=== PATIENT | female | born 1995 | race Two or more races ===

== ENCOUNTER 2018-08-31 05:18 | Inpatient (IN) | payer OTHER ==
[2018-08-31 06:09] LABS: ADD MAN DIFF? NO
[2018-08-31 06:13] LABS: BASOPHILS % 0.9 % (0.0-2.0); EOSINOPHILS # 0.2 10^3/ul (0.0-0.5); EOSINOPHILS % 4.2 % (0.0-7.0); HEMATOCRIT 40.3 % (37.0-47.0); HEMOGLOBIN 13.4 g/dl (12.0-16.0); LYMPHOCYTES # 2.1 10^3/ul (0.8-2.9); LYMPHOCYTES % 47.7 % (15.0-51.0); MEAN CORPUSCULAR HEMOGLOBIN 29.7 pg (29.0-33.0); MEAN CORPUSCULAR HGB CONC 33.3 g/dl (32.0-37.0); MEAN CORPUSCULAR VOLUME 89.4 fl (82.0-101.0); MEAN PLATELET VOLUME 10.9 fl (7.4-10.4); MONOCYTE # 0.5 10^3/ul (0.3-0.9); MONOCYTES % 11.2 % (0.0-11.0); NEUTROPHIL # 1.6 10^3/ul (1.6-7.5); PLATELET COUNT 191 10^3/UL (140-415); RED BLOOD COUNT 4.51 10^6/ul (4.20-5.40); RED CELL DISTRIBUTION WIDTH 12.6 % (11.5-14.5)
[2018-08-31 06:13] LABS: WHITE BLOOD COUNT 4.3 10^3/ul (4.8-10.8)
[2018-08-31] MEDS: LACTATED RINGER'S 1,000 ML IV ×3 (06:27→19:58)
[2018-08-31 06:28] LABS: HOLD TRANSMISSIONS 1
[2018-08-31 06:31] LABS: INR 0.83; PROTIME 11.5 Sec (11.9-14.9); PT RATIO 0.9
[2018-08-31 06:32] LABS: PARTIAL THROMBOPLASTIN TIME 26.2 Sec (23.0-35.0)
[2018-08-31 06:38] LABS: ALANINE AMINOTRANSFERASE 29 IU/L (13-69); ALBUMIN/GLOBULIN RATIO 1.25; ALKALINE PHOSPHATASE 75 IU/L (42-121); ANION GAP 11 (5-13); ASPARTATE AMINO TRANSFERASE 32 IU/L (15-46); BILIRUBIN,INDIRECT 0.5 mg/dl (0-1.1); BILIRUBIN,TOTAL 0.5 mg/dl (0.2-1.3); BLOOD UREA NITROGEN 16 mg/dl (7-20); CARBON DIOXIDE 21 mmol/L (21-31); CREATININE 0.92 mg/dl (0.44-1.00); Estimated GFR > 60 mL/min (>60); GLUCOSE 88 mg/dl (70-220); POTASSIUM 4.2 mmol/L (3.5-5.1); TOTAL PROTEIN 7.2 g/dl (6.1-8.1)
[2018-08-31 06:41] LABS: CHLORIDE 113 mmol/L (97-110); SODIUM 145 mmol/L (135-144)
[2018-08-31] MEDS ORDERED: MEPERIDINE 25 MG INJ IV (07:00)
[2018-08-31] MEDS ORDERED: OXYCODONE/ACETAMINOPHEN (5/325) TAB PO ×2 (07:00)
[2018-08-31] MEDS ORDERED: ONDANSETRON 4 MG INJ IV ×2 (07:00→08:00)
[2018-08-31] MEDS ORDERED: HYDROmorphONE 1 MG/5 ML IV SYRINGE IV ×2 (07:00)
[2018-08-31] MEDS ORDERED: ALBUTEROL 0.083% (NEB) 2.5 MG/3 ML AMP HHN (07:00)
[2018-08-31] MEDS ORDERED: LIDOCAINE 4% (MPF) 5 ML INJ (07:05)
[2018-08-31] MEDS ORDERED: LIDOCAINE 2% (SDV) 5 ML INJ (07:09)
[2018-08-31] MEDS ORDERED: ROCURONIUM 50 MG INJ (07:09)
[2018-08-31] MEDS ORDERED: MIDAZOLAM 1 MG/ML 2 ML INJ (07:09)
[2018-08-31] MEDS ORDERED: HYDROmorphONE 2 MG/ML SYG (07:09)
[2018-08-31] MEDS ORDERED: PROPOFOL 20 ML (07:09)
[2018-08-31] MEDS ORDERED: CEFAZOLIN 1 GM INJ (07:12)
[2018-08-31] MEDS ORDERED: DEXAMETHASONE 4 MG/ML 5 ML INJ (07:51)
[2018-08-31] MEDS ORDERED: METOCLOPRAMIDE 10 MG INJ (07:51)
[2018-08-31] MEDS ORDERED: ONDANSETRON 4 MG INJ (07:51)
[2018-08-31] MEDS ORDERED: FAMOTIDINE 20 MG INJ (07:52)
[2018-08-31] MEDS ORDERED: HYDROCODONE/APAP (5/325) TAB PO (08:00)
[2018-08-31] MEDS ORDERED: GLYCOPYRROLATE 0.4 MG INJ (08:27)
[2018-08-31] MEDS ORDERED: NEOSTIGMINE 3 MG/3 ML SYRINGE (08:27)
[2018-08-31] MEDS: HYDROmorphONE 1 MG/5 ML IV SYRINGE IV (09:17)
[2018-08-31] MEDS: HYDROCODONE/APAP (5/325) TAB PO ×2 (11:43→17:44)
[2018-08-31] MEDS: morphine 2 MG INJ IV ×3 (13:09→19:53)
[2018-08-31] MEDS: KETOROLAC 30 MG INJ IV ×2 (16:17→22:16)
[2018-08-31] MEDS: MINERAL OIL 30ML CUP PO (21:28)
[2018-08-31] MEDS: MAGNESIUM HYDROXIDE 30ML CUP PO (21:28)
[2018-09-01] MEDS: KETOROLAC 30 MG INJ IV (04:08)
[2018-09-01] MEDS: LACTATED RINGER'S 1,000 ML IV (04:08)
[2018-09-01 05:28] LABS: ADD MAN DIFF? NO
[2018-09-01 05:31] LABS: WHITE BLOOD COUNT 7.2 10^3/ul (4.8-10.8)
[2018-09-01 05:31] LABS: BASOPHILS % 0.3 % (0.0-2.0); EOSINOPHILS # 0.1 10^3/ul (0.0-0.5); EOSINOPHILS % 0.8 % (0.0-7.0); HEMOGLOBIN 11.1 g/dl (12.0-16.0); LYMPHOCYTES # 1.6 10^3/ul (0.8-2.9); LYMPHOCYTES % 22.8 % (15.0-51.0); MEAN CORPUSCULAR HEMOGLOBIN 29.7 pg (29.0-33.0); MEAN CORPUSCULAR HGB CONC 33.6 g/dl (32.0-37.0); MEAN CORPUSCULAR VOLUME 88.2 fl (82.0-101.0); MEAN PLATELET VOLUME 10.6 fl (7.4-10.4); MONOCYTE # 0.8 10^3/ul (0.3-0.9); MONOCYTES % 10.6 % (0.0-11.0); NEUTROPHIL # 4.7 10^3/ul (1.6-7.5); NEUTROPHILS % 65.2 % (39.0-77.0); PLATELET COUNT 148 10^3/UL (140-415); RED BLOOD COUNT 3.74 10^6/ul (4.20-5.40); RED CELL DISTRIBUTION WIDTH 12.5 % (11.5-14.5)
[2018-09-01] MEDS: HYDROCODONE/APAP (5/325) TAB PO (07:52)
[2018-09-01] MEDS: MAGNESIUM CITRATE 300 ML BTL PO (07:53)
[2018-09-01] MEDS: MAGNESIUM HYDROXIDE 30ML CUP PO (09:00)
[2018-09-01] MEDS: MINERAL OIL 30ML CUP PO (09:00)
[2018-09-01] MEDS: ENOXAPARIN 40 MG/0.4 ML SYG SC (09:00)
== END 2018-09-01 11:15 | disposition home or self-care (01) | DRG 743 ==
LOC: REC 05:18 → 2NE 10:00
PROC: 0UB10ZZ Excision of Left Ovary, Open Approach (ICD-10-PCS; principal; 2018-08-31 07:30)
DX: D27.1 Benign neoplasm of left ovary (principal)
CPT/HCPCS: 80053; 85025; 85610; 85730; 87086; 88307